=== PATIENT | female | born 1950 | race Caucasian/White ===

== ENCOUNTER → 2018-11-18 14:39 | Outpatient (CLI) | payer OTHER, SELFPAY | PROVIDERS: PCP Internal Medicine; Visit Provider Internal Medicine | DX: M85.852 Other specified disorders of bone density and structure, left thigh (principal); Z78.0 Asymptomatic menopausal state; Z82.62 Family history of osteoporosis | CPT/HCPCS: 77080 ==

== ENCOUNTER 2021-08-26 20:12 | Observation (INO) | payer OTHER, SELFPAY ==
[2021-08-26] VITALS (7 sets, daily range): BP systolic 137–158; BP diastolic 63–72; PULSE 77–88; RESP 12–18; TEMP 36.7; O2SAT 95–100; BMI 18.1; BMI 18.5
--- NOTE | 2021-08-26 20:31 | PC.NURSE ---
Patient reports increase emotional stress with 101 yr old mother not doing well. Patient had one episode of vomiting. Has had about 5 episodes of bright red blood in stool. Shakey, and nauseated.
[2021-08-26 20:36] LABS: Add Manual Diff / Slide Review NO; Basophils Absolute Auto 0 /uL (0-100); Basophils Percent Auto 0.4 % (0-2); Eosinophils Absolute Auto 0 /uL (0-450); Eosinophils Percent Auto 0.2 % (2-4); Hematocrit 39.2 % (36-46); Hemoglobin 13.3 g/dL (12.0-16.0); Lymphocytes Absolute Auto 900 /uL (1100-4500); Lymphocytes Percent Auto 13.4 % (25-40); Mean Corpuscular HGB Conc 33.9 % (30-36); Mean Corpuscular Hemoglobin 33.6 PG (26-34); Mean Corpuscular Volume 99.3 fL (80-100); Monocytes Absolute Auto 500 /uL (0-900); Monocytes Percent Auto 6.9 % (3-14); Neutrophils Absolute Auto 5400 /uL (1500-7000); Neutrophils Percent Auto 79.1 % (50-75); Platelet Count 195 X10^3/uL (150-400); Red Blood Cell Count 3.95 X10^6/uL (4.0-5.2); Red Cell Distribution Width 13.1 % (11.6-14.8); White Blood Cell Count 6.8 X10^3/uL (4.5-11.0)
--- NOTE | 2021-08-26 20:40 | ED_ITS ---
HPI - GI Bleed General Chief complaint: GI Bleed Stated complaint: SICK TO MY STOMACH RECTAL BLEEDING Time Seen by Provider: 08/26/21 20:28 Source: patient Mode of arrival: Wheelchair Limitations: no limitations History of Present Illness HPI Narrative: The patient is a 71-year-old female with no past medical history presenting today with 3 episodes of bright red blood per rectum. He has never had any GI bleeding in the past she is not on any antiplatelet or anticoagulation medication. She has been under lot of stress lately her [id number] mother is actively dying. She has been staying with her. This mor gabbie she had abdominal cramps she threw up once which was nonbloody. She feels dizzy and lightheaded she stands up she overall does not feel well. She previously had a colonoscopy when she was 62 years Related Data Home Medications Medication Instructions Recorded Confirmed alprazolam 0.5 mg tablet 0.5 mg PO PRN PRN 08/27/21 08/27/21 Allergies Allergy/AdvReac Type Severity Reaction Status Date / Time No Known Drug Allergies Allergy Verified 05/25/19 13:48 Review of Systems Review of Systems Narrative: GENERAL: Denies chills, fatigue, malaise, fever, sweats, travel HEENT: Denies sinus pain, ear pain, sore throat, difficulty swallowing, neck pain RESPIRATORY: Denies dyspnea, cough, wheezing, hemoptysis, sputum. CARDIOVASCULAR: Denies chest pain, palpitations, orthopnea, edema GASTROINTESTINAL: see HPI : Denies dysuria, frequency, incontinence, hematuria, urinary retention, flank pain. MUSCULOSKELETAL: Denies weakness, joint pain, or bony pain SKIN: No rash, no erythema, no pruritus NEUROLOGIC:+ dizziness Denies weakness, headache, numbness, change in speech, confusion PSYCHIATRIC: No concerning psychosocial issues. 12 point review of systems is negative except for those stated above and HPI Patient History Medical History (Updated 08/27/21 @ 00:22 by LINCOLN Connell) Healthy adult Surgical History (Updated 08/27/21 @ 00:40 by LINCOLN Connell) No history of previous surgery Family History (Updated 08/27/21 @ 00:41 by LINCOLN Connell) Mother Unknown family medical history Frequent falls Old age Father FH: lung cancer Social History household members: spouse Smoking Status: Never smoker alcohol intake: current Smoking Status: Never smoker Substance Use Type: does not use Exam Initial Vital Signs Initial Vital Signs: Vital Signs Temperature 98.1 F 08/26/21 20:19 Pulse Rate 82 08/26/21 20:19 Respiratory Rate 18 08/26/21 20:19 Blood Pressure 158/72 H 08/26/21 20:19 Pulse Oximetry 99 08/26/21 20:19 GENERAL: Alert 71-year-old female appears in mild distress HEENT: Head atraumatic,EOMI, pupils reactive, face symmetric, moist mucous membranes CARDIOVASCULAR: Regular rate and rhythm without murmurs, rubs or gallops. RESPIRATORY: Breath sounds equal bilaterally, no wheezes rales or rhonchi. ABDOMEN: Soft, nontender. Normoactive bowel sounds all 4 quadrants. No guarding or rebound. RECTAL: She does have blood on the pad she is wearing but is guaiac negative no hemorrhoids : No CVA tenderness EXTREMITIES: Normal range of motion, no clubbing or edema. Neurovascularly intact NEUROLOGICAL: Alert and oriented x4.Normal gait and speech. Obvious minor tremor SKIN: Warm, dry, no laceration, no petechiae, no rashes or lesions. Course Orders Ordered: ED Orders 08/26/21 20:22 Complete Blood Count AUTO DIFF Stat Comprehensive Metabolic Panel Stat Lactate (Lactic Acid) Stat Procalcitonin Stat Troponin & CK Cardiac Panel Stat 08/26/21 20:24 EKG-12 Lead Stat 08/26/21 20:50 CT abdomen pelvis w con Stat 08/26/21 21:40 COVID19 - ADMIT ([employer] swab/PCR) Stat Acetaminophen (Acetaminophen 325 Mg Tablet) 650 mg PO Q6HR PRN PRN Reason: Fever/Mild Pain (1-3) Last Admin: 08/27/21 00:19 Dose: 650 mg Documented by: MASSIMORBFlaquita Sodium Chloride (Normal Saline 0.9%) 1,000 mls @ 100 mls/hr IV CONT LORE Last Admin: 08/26/21 23:28 Dose: 100 mls/hr Documented by: DANIELLE Morphine Sulfate (Morphine 2 Mg/Ml Inj) 2 mg IV Q3H PRN PRN Reason: Pain, Moderate (4-6) Naloxone HCl (Naloxone 0.4 Mg/Ml Vial) 0.2 mg IV Q2MIN PRN PRN Reason: Opiate Reversal Ondansetron HCl (Ondansetron 4 Mg/2 Ml Inj) 4 mg IV Q6HR PRN PRN Reason: Nausea And Vomiting Pantoprazole Sodium (Pantoprazole 40 Mg Vial) 40 mg IV BID LORE Discontinued Medications Acetaminophen (Acetaminophen 325 Mg Tablet) 650 mg PO NOW ONE Stop: 08/26/21 20:59 Last Admin: 08/26/21 21:12 Dose: 650 mg Documented by: AKIN Sodium Chloride (Normal Saline 0.9%) 1,000 mls @ 1,000 mls/hr IV BOLUS ONE Stop: 08/26/21 22:57 Last Infusion: 08/26/21 23:07 Dose: 0 mls/hr Documented by: Admin: 08/26/21 22:05 Dose: 1,000 mls/hr Documented by: AKIN Morphine Sulfate (Morphine 2 Mg/Ml Inj) 2 mg IV NOW ONE Stop: 08/26/21 22:42 Last Admin: 08/26/21 22:50 Dose: 2 mg Documented by: AKIN Pantoprazole Sodium (Pantoprazole 40 Mg Vial) 40 mg IV NOW ONE Stop: 08/26/21 20:51 Last Admin: 08/26/21 20:55 Dose: 40 mg Documented by: AKIN Vital Signs Vital signs: Vital Signs - 8 hr 08/26/21 20:19 08/26/21 21:00 08/26/21 21:11 Temperature 98.1 F Pulse Rate 82 79 88 Respiratory Rate 18 18 16 Blood Pressure 158/72 H 137/63 155/69 H Pulse Oximetry 99 98 99 08/26/21 21:30 08/26/21 22:00 08/26/21 22:30 Temperature Pulse Rate 80 85 77 Respiratory Rate 16 12 12 Blood Pressure 149/67 H 141/65 H 157/69 H Pulse Oximetry 96 95 100 MDM - GI Bleed Lab Data Result diagrams: 08/26/21 20:22 08/26/21 20:22 Labs: Lab Results 08/26/21 08/26/21 08/26/21 Range/Units 20:22 20:22 20:22 WBC 6.8 (4.5-11.0) X10^3/uL RBC 3.95 L (4.0-5.2) X10^6/uL Hgb 13.3 (12.0-16.0) g/dL Hct 39.2 (36-46) % MCV 99.3 (80-100) fL MCH 33.6 (26-34) PG MCHC 33.9 (30-36) % RDW 13.1 (11.6-14.8) % Plt Count 195 (150-400) X10^3/uL Neut % (Auto) 79.1 H (50-75) % Lymph % (Auto) 13.4 L (25-40) % [place] % (Auto) 6.9 (3-14) % Eos % (Auto) 0.2 L (2-4) % Baso % (Auto) 0.4 (0-2) % Neut # (Auto) 5400 (3843-9259) /uL Lymph # (Auto) 900 L (5498-7952) /uL [place] # (Auto) 500 (0-900) /uL Eos # (Auto) 0 (0-450) /uL Baso # (Auto) 0 (0-100) /uL Sodium 141 (137-145) mmol/L Potassium 3.7 (3.4-5.1) mmol/L Chloride 101 (98-107) mmol/L Carbon Dioxide 22 (22-32) mmol/L BUN 5 L (7-17) mg/dL Creatinine 0.56 (0.52-1.04) mg/dL Estimated GFR > 60.0 (>60) mL/min BUN/Creatinine Ratio 8.9 (6-22) Glucose 138 H (80-110) mg/dL Lactate (0.7-2.1) mmol/L Calcium 9.8 (8.4-10.2) mg/dL Total Bilirubin 0.7 (0.2-1.3) mg/dL AST 232 H (14-36) IU/L ALT 196 H (<35) IU/L Alkaline Phosphatase 57 (38-126) U/L Total Creatine Kinase 60 (30-135) U/L CK-MB (CK-2) TNP CK-MB (CK-2) Rel Index TNP Troponin I < 0.012 (0.01-0.034) ng/mL Total Protein 7.9 (6.3-8.2) g/dL Albumin 4.9 (3.5-5.0) g/dL Globulin 3.0 (1.7-4.1) g/dL Albumin/Globulin Ratio 1.6 (1.0-2.8) Procalcitonin (<0.5) ng/mL SARS-CoV-2 (PCR) (Negative) Blood Type Antibody Screen 08/26/21 08/26/21 08/26/21 Range/Units 20:22 20:22 20:22 WBC (4.5-11.0) X10^3/uL RBC (4.0-5.2) X10^6/uL Hgb (12.0-16.0) g/dL Hct (36-46) % MCV (80-100) fL MCH (26-34) PG MCHC (30-36) % RDW (11.6-14.8) % Plt Count (150-400) X10^3/uL Neut % (Auto) (50-75) % Lymph % (Auto) (25-40) % [place] % (Auto) (3-14) % Eos % (Auto) (2-4) % Baso % (Auto) (0-2) % Neut # (Auto) (9239-1916) /uL Lymph # (Auto) (1291-3152) /uL [place] # (Auto) (0-900) /uL Eos # (Auto) (0-450) /uL Baso # (Auto) (0-100) /uL Sodium (137-145) mmol/L Potassium (3.4-5.1) mmol/L Chloride (98-107) mmol/L Carbon Dioxide (22-32) mmol/L BUN (7-17) mg/dL Creatinine (0.52-1.04) mg/dL Estimated GFR (>60) mL/min BUN/Creatinine Ratio (6-22) Glucose (80-110) mg/dL Lactate 3.5 H (0.7-2.1) mmol/L Calcium (8.4-10.2) mg/dL Total Bilirubin (0.2-1.3) mg/dL AST (14-36) IU/L ALT (<35) IU/L Alkaline Phosphatase (38-126) U/L Total Creatine Kinase (30-135) U/L CK-MB (CK-2) CK-MB (CK-2) Rel Index Troponin I (0.01-0.034) ng/mL Total Protein (6.3-8.2) g/dL Albumin (3.5-5.0) g/dL Globulin (1.7-4.1) g/dL Albumin/Globulin Ratio (1.0-2.8) Procalcitonin 0.11 (<0.5) ng/mL SARS-CoV-2 (PCR) (Negative) Blood Type A Positive Antibody Screen Negative 08/26/21 Range/Units 21:40 WBC (4.5-11.0) X10^3/uL RBC (4.0-5.2) X10^6/uL Hgb (12.0-16.0) g/dL Hct (36-46) % MCV (80-100) fL MCH (26-34) PG MCHC (30-36) % RDW (11.6-14.8) % Plt Count (150-400) X10^3/uL Neut % (Auto) (50-75) % Lymph % (Auto) (25-40) % [place] % (Auto) (3-14) % Eos % (Auto) (2-4) % Baso % (Auto) (0-2) % Neut # (Auto) (4689-7967) /uL Lymph # (Auto) (2420-9709) /uL [place] # (Auto) (0-900) /uL Eos # (Auto) (0-450) /uL Baso # (Auto) (0-100) /uL Sodium (137-145) mmol/L Potassium (3.4-5.1) mmol/L Chloride (98-107) mmol/L Carbon Dioxide (22-32) mmol/L BUN (7-17) mg/dL Creatinine (0.52-1.04) mg/dL Estimated GFR (>60) mL/min BUN/Creatinine Ratio (6-22) Glucose (80-110) mg/dL Lactate (0.7-2.1) mmol/L Calcium (8.4-10.2) mg/dL Total Bilirubin (0.2-1.3) mg/dL AST (14-36) IU/L ALT (<35) IU/L Alkaline Phosphatase (38-126) U/L Total Creatine Kinase (30-135) U/L CK-MB (CK-2) CK-MB (CK-2) Rel Index Troponin I (0.01-0.034) ng/mL Total Protein (6.3-8.2) g/dL Albumin (3.5-5.0) g/dL Globulin (1.7-4.1) g/dL Albumin/Globulin Ratio (1.0-2.8) Procalcitonin (<0.5) ng/mL SARS-CoV-2 (PCR) Negative (Negative) Blood Type Antibody Screen Point of Care Testing Stool Occult Blood Negative Imaging Data CT scan - abdomen/pelvis: Radiologist's Impression: PROCEDURE:? CT ABDOMEN PELVIS W CON ? INDICATIONS:? abdominal pain ? TECHNIQUE:? After the administration of intravenous contrast, axial sections acquired from the lung bases to the pubic symphysis.? Coronal and sagittal reformats were performed.? For radiation dose reduction, the following was used:? automated exposure control, adjustment of mA and/or kV according to patient size.? ? COMPARISON:? None. ? FINDINGS:? Image quality:? Excellent.? ? Lung bases:? Unremarkable.? Moderate size hiatal hernia. Heart:? No significant findings. ? ABDOMEN: Liver:? Significant parenchymal hypodensity suggesting steatosis. Gallbladder:? There are few small dependently layering stones near the fundus.? No wall thickening or pericholecystic inflammation. Biliary ducts:? Nondilated. Pancreas:? Normal Spleen:? Normal size. Adrenal Glands:? No nodules. Kidneys and Ureters:? Normal enhancement.? No hydronephrosis or nephrolithiasis.? Normal ureter caliber. ? Stomach and Bowel:? Most of the colon is in significant spasm.? There is wall thickening, wall edema, and mucosal hyperemia involving most of the colon.? There are pericolonic hyperemic changes and trace fat stranding.? Stomach and small bowel are within normal limits. Peritoneum:? No abnormal intraperitoneal fluid.? No free air.? ? Ventral Wall: ? No hernias.? Abdominal Nodes:? Occasional borderline retroperitoneal lymph nodes.? No bulky adenopathy. Vessels:? Aorta and inferior vena cava are normal in size.? ? PELVIS: Pelvic Organs:? Uterus and ovaries are normal. Bladder:? Decompressed. Pelvic Nodes: No enlarged lymph nodes.? Miscellaneous: No hernias are seen. ? ? ? Bones:? Unremarkable.? IMPRESSION:? 1. Findings suggestive of diffuse colitis, infectious or inflammatory.? Given wall thickening, C difficile should be considered.? Correlate clinically. 2. Significant hepatic steatosis. 3. Moderate size hiatal hernia. 4. Cholelithiasis.? ? ? Dictated by: Daiana Phillips M.D. on 08/26/2021 at 21:31 ? ? ECG Data Interpretation: Sinus rhythm rate 77 CO interval 190 QRS 70 QTC 502 no MDM Narrative Medical decision making narrative: Patient is having some symptoms of a possible gastroenteritis been nauseated off and on 1 episode of vomiting intense abdominal cramping and 3 episodes of bright red blood. She does not have leukocytosis in fact her hemoglobin hematocrit are stable. However she does have significantly elevated lactate at 3.5. Her guaiac is negative. CT is concerning for possible colitis. This time I doubt C diff as it suggested seeing as though she has bright red blood. She overall continues to just not feel great despite IV fluids is feeling a bit better. I think it appropriate for her to be monitored. She has not had any further episode of GI bleeding in the emergency department 1040 Dr. Diaz surgery updated patient's symptoms and test results and happily will consult 1043pm Michaelle 1 AR and P update patient's symptoms test results surgery recommendations will accept for observation Discharge Plan Departure Patient Disposition: Admitted as Observation Clinical Impression: Acute GI bleeding Admit Date/Time: 08/26/21 22:47 Admit Provider: Chelsea Gandhi
--- NOTE | 2021-08-26 20:50 | DI.CT.S_ITS ---
PROCEDURE: CT ABDOMEN PELVIS W CON INDICATIONS: abdominal pain TECHNIQUE: After the administration of intravenous contrast, axial sections acquired from the lung bases to the pubic symphysis. Coronal and sagittal reformats were performed. For radiation dose reduction, the following was used: automated exposure control, adjustment of mA and/or kV according to patient size. COMPARISON: None. FINDINGS: Image quality: Excellent. Lung bases: Unremarkable. Moderate size hiatal hernia. Heart: No significant findings. ABDOMEN: Liver: Significant parenchymal hypodensity suggesting steatosis. Gallbladder: There are few small dependently layering stones near the fundus. No wall thickening or pericholecystic inflammation. Biliary ducts: Nondilated. Pancreas: Normal Spleen: Normal size. Adrenal Glands: No nodules. Kidneys and Ureters: Normal enhancement. No hydronephrosis or nephrolithiasis. Normal ureter caliber. Stomach and Bowel: Most of the colon is in significant spasm. There is wall thickening, wall edema, and mucosal hyperemia involving most of the colon. There are pericolonic hyperemic changes and trace fat stranding. Stomach and small bowel are within normal limits. Peritoneum: No abnormal intraperitoneal fluid. No free air. Ventral Wall: No hernias. Abdominal Nodes: Occasional borderline retroperitoneal lymph nodes. No bulky adenopathy. Vessels: Aorta and inferior vena cava are normal in size. PELVIS: Pelvic Organs: Uterus and ovaries are normal. Bladder: Decompressed. Pelvic Nodes: No enlarged lymph nodes. Miscellaneous: No hernias are seen. Bones: Unremarkable. IMPRESSION: 1. Findings suggestive of diffuse colitis, infectious or inflammatory. Given wall thickening, C difficile should be considered. Correlate clinically. 2. Significant hepatic steatosis. 3. Moderate size hiatal hernia. 4. Cholelithiasis. Dictated by: Daiana Phillips M.D. on 08/26/2021 at 21:31 Approved by: Daiana Phillips M.D. on 08/26/2021 at 21:38
[2021-08-26 20:52] LABS: Alanine Aminotransferase 196 IU/L (<35); Albumin 4.9 g/dL (3.5-5.0); Albumin Globulin Ratio 1.6 (1.0-2.8); Alkaline Phosphatase 57 U/L (38-126); Aspartate Aminotransferase 232 IU/L (14-36); BUN Creatinine Ratio 8.9 (6-22); Bilirubin Total 0.7 mg/dL (0.2-1.3); Blood Urea Nitrogen 5 mg/dL (7-17); Calcium 9.8 mg/dL (8.4-10.2); Carbon Dioxide 22 mmol/L (22-32); Chloride 101 mmol/L (98-107); Creatine Kinase 60 U/L (30-135); Estimated Glomerular Filt Rate > 60.0 mL/min (>60); Glucose 138 mg/dL (80-110); HEMOLYSIS < 15 (0-50); Potassium 3.7 mmol/L (3.4-5.1); Sodium 141 mmol/L (137-145); Total Protein 7.9 g/dL (6.3-8.2)
[2021-08-26 20:53] LABS: Lactate (Lactic Acid) 3.5 mmol/L (0.7-2.1)
[2021-08-26] MEDS: PANTOPRAZOLE 40 MG VIAL IV (20:55)
[2021-08-26 21:04] LABS: Troponin I < 0.012 ng/mL (0.01-0.034)
[2021-08-26] MEDS: ACETAMINOPHEN 325 MG TABLET 650 MG PO (21:12)
[2021-08-26] MEDS: SODIUM CHLORIDE 0.9% 1,000 ML 1000 ML IV (22:05)
[2021-08-26 22:29] LABS: Procalcitonin 0.11 ng/mL (<0.5)
[2021-08-26 22:30] LABS: Reflexed Lactate in 2 Hours Y
[2021-08-26 22:39] LABS: COVID19 - ADMIT (NP swab/PCR) Negative (Negative)
[2021-08-26] MEDS: MORPHINE 2 MG/ML INJ IV (22:50)
[2021-08-26 23:09] LABS: Lactate 2HR (Lactic Acid Rflx) 1.5 mmol/L (0.7-2.1)
[2021-08-26] MEDS: SODIUM CHLORIDE 0.9% 1,000 ML 100 ML IV (23:28)
[2021-08-27] VITALS (8 sets, daily range): BP systolic 108–147; BP diastolic 45–61; PULSE 77–90; RESP 16–22; TEMP 36.1–37.9; O2SAT 97–100; BMI 18.5
[2021-08-27] MEDS: ACETAMINOPHEN 325 MG TABLET 650 MG PO ×2 (00:19→20:36)
--- NOTE | 2021-08-27 00:21 | P.HP_ITS ---
History of Present Illness History of Present Illness Chief complaint: SICK TO MY STOMACH RECTAL BLEEDING Narrative: Chelsea Betancourt is a 71 y.o. female with no significant health diagnoses was visiting her mother at her fpc when she was starting to feel off. She assessed by the nurse at her mother's facility and she states a staff member either brought her to the ED or gave her a ride to the ED. She states she has been under a lot of stress as she states her 101 y.o. mother is terminal. She is having some difficulty remembering details and feels bad about that. States has not been eating much but had 3 bowel movements that appeared to be only blood. Last colonoscopy 9 years ago. Denies any recent illnesses or hospitalizations. Denies shortness of breath, chest pain, she is nauseous w/no vomiting, states her abdomen is not painful but does not feel right and is bloated, denies a history of DVT's or calf pain or numbing or tingling of her upper or lower extremities. CT of the abdomen indicated: Findings suggestive of diffuse colitis, infectious or inflammatory.? Given wall thickening, C difficile should be considered.? Correlate clinically. Hepatic stateosis was also seen on CT. She had an elevated lactate of 3.4 and after given a fluid bolus lactate came down to 1.2. Patient was afebrile in presentation to the emergency department when I saw her her temperature was 100.3?. Blood pressure 143/69 heart rate 78 respiratory rate 12 oxygen saturation of 98% on room air she weighs 52 kg with a BMI of 18.5. CBC is unremarkable and she has normal hemoglobin and hematocrit, glucose 138, AST 232, ALT 196, procalcitonin within normal limits, COVID-19 PCR was negative, blood type is A positive. Patient History Medical History (Updated 08/27/21 @ 00:22 by LINCOLN Connell) Healthy adult Surgical History (Updated 08/27/21 @ 00:40 by LINCOLN Connell) No history of previous surgery Family & Social History Family History (Updated 08/27/21 @ 00:41 by LINCOLN Connell) Mother Unknown family medical history Frequent falls Old age Father FH: lung cancer Social History: household members spouse Prior Living Arrangements House Safety & Behavioral: Feels Safe in Current Yes Environment Been Physically Hurt or No Threatened By a Person Suicidal Ideation Description None Suicide Plan Description No Plan Tobacco & Substance use: Smoking Status Never smoker alcohol intake current alcohol intake frequency 0-2 drinks per day Substance Use Type does not use Comment: 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 [employer] Meds Home Medications and Allergies Home Medications Medication Instructions Recorded Confirmed Type azithromycin 250 mg tablet See Rx Instructions PO .COMPLEX #6 05/25/19 Rx tab Allergies Allergy/AdvReac Type Severity Reaction Status Date / Time No Known Drug Allergies Allergy Verified 05/25/19 13:48 Review of Systems Review of Systems ROS: Yes All systems reviewed with the patient and are negative except as otherwise documented Exam Vital Signs (past 8 hours): - 08/26/21 20:19 08/26/21 21:00 08/26/21 21:11 Temperature 98.1 F Pulse Rate 82 79 88 Respiratory Rate 18 18 16 Blood Pressure 158/72 H 137/63 155/69 H Pulse Oximetry 99 98 99 08/26/21 21:30 08/26/21 22:00 08/26/21 22:30 Temperature Pulse Rate 80 85 77 Respiratory Rate 16 12 12 Blood Pressure 149/67 H 141/65 H 157/69 H Pulse Oximetry 96 95 100 08/26/21 23:10 08/27/21 00:19 Temperature 100.3 F H Pulse Rate 78 Respiratory Rate 12 Blood Pressure 143/69 H Pulse Oximetry 98 Oxygen Delivery Method Room Air Narrative Exam Narrative: Gen: Alert, oriented, well-developed 71 y.o. female, mildly anxious HEENT: normocephalic, atraumatic, conjunctiva clear, sclera non-icteric, oral mucosa pink and moist Neck: supple, full ROM, no JVD, trachea is midline Resp: Lungs CTA, non-labored breathing CV: RRR, no murmur or rubs Abd: soft, diffusely mild tender all quadrants, hyperactive BTs Skin: no lesions or rashes, dry and intact Neuro: Alert and oriented X 4 w/no focal deficits. Speech clear and coherent. Extremities: moves all 4 extremities, is ambulatory, negative Damir?s sign Psyche: normal mood and affect. Objective Labs Result Diagrams: 08/26/21 20:22 08/26/21 20:22 Labs: Laboratory Results - last 24 hr 08/26/21 08/26/21 08/26/21 20:22 20:22 20:22 WBC 6.8 RBC 3.95 L Hgb 13.3 Hct 39.2 MCV 99.3 MCH 33.6 MCHC 33.9 RDW 13.1 Plt Count 195 Neut % (Auto) 79.1 H Lymph % (Auto) 13.4 L [place] % (Auto) 6.9 Eos % (Auto) 0.2 L Baso % (Auto) 0.4 Neut # (Auto) 5400 Lymph # (Auto) 900 L [place] # (Auto) 500 Eos # (Auto) 0 Baso # (Auto) 0 Sodium 141 Potassium 3.7 Chloride 101 Carbon Dioxide 22 BUN 5 L Creatinine 0.56 Estimated GFR > 60.0 BUN/Creatinine Ratio 8.9 Glucose 138 H Lactate Calcium 9.8 Total Bilirubin 0.7 AST 232 H ALT 196 H Alkaline Phosphatase 57 Total Creatine Kinase 60 CK-MB (CK-2) TNP CK-MB (CK-2) Rel Index TNP Troponin I < 0.012 Total Protein 7.9 Albumin 4.9 Globulin 3.0 Albumin/Globulin Ratio 1.6 Procalcitonin SARS-CoV-2 (PCR) Blood Type Antibody Screen 08/26/21 08/26/21 08/26/21 20:22 20:22 20:22 WBC RBC Hgb Hct MCV MCH MCHC RDW Plt Count Neut % (Auto) Lymph % (Auto) [place] % (Auto) Eos % (Auto) Baso % (Auto) Neut # (Auto) Lymph # (Auto) [place] # (Auto) Eos # (Auto) Baso # (Auto) Sodium Potassium Chloride Carbon Dioxide BUN Creatinine Estimated GFR BUN/Creatinine Ratio Glucose Lactate 3.5 H Calcium Total Bilirubin AST ALT Alkaline Phosphatase Total Creatine Kinase CK-MB (CK-2) CK-MB (CK-2) Rel Index Troponin I Total Protein Albumin Globulin Albumin/Globulin Ratio Procalcitonin 0.11 SARS-CoV-2 (PCR) Blood Type A Positive Antibody Screen Negative 08/26/21 08/26/21 21:40 22:49 WBC RBC Hgb Hct MCV MCH MCHC RDW Plt Count Neut % (Auto) Lymph % (Auto) [place] % (Auto) Eos % (Auto) Baso % (Auto) Neut # (Auto) Lymph # (Auto) [place] # (Auto) Eos # (Auto) Baso # (Auto) Sodium Potassium Chloride Carbon Dioxide BUN Creatinine Estimated GFR BUN/Creatinine Ratio Glucose Lactate 1.5 Calcium Total Bilirubin AST ALT Alkaline Phosphatase Total Creatine Kinase CK-MB (CK-2) CK-MB (CK-2) Rel Index Troponin I Total Protein Albumin Globulin Albumin/Globulin Ratio Procalcitonin SARS-CoV-2 (PCR) Negative Blood Type Antibody Screen Assessment & Plan Assessment & Plan narrative: Chelsea Betancourt is placed into observation for further evaluation of a suspected infectious or viral colitis 1. Sepsis is secondary to unknown cause, possible infectious or viral colitis, present on admission, appears to have resolved * SOFA score = 0 * Patient is currently febrile but it was resolved with Tylenol * Lactate was 3.4 and came down to 1.2 with a fluid bolus * GI film array and clostridioum difficile PCR pending * IVF NS at 100 ml/hour * IV morphine 2 mg q 3 hours for pain, IV zofran for nausea, po tylenol for fever, mild pain * Diet advance as tolerated VTE Prophylaxis: Wells risk score 0 Bilateral SCDs Patient is placed into observation as her stay is not expected to exceed 2 midnights. FEN: IV fluids: NS at 100 ml/hour, diet: advance as tolerated, labs: CBC, BMP Consultants Dr. Diaz, General Surgery, care and involvement in the patient?s care is appreciated. Dispo: unknown at this time Code status: Full code as discussed with the patient who identifies her Dario as her surrogate and POA. [X] I have utilized all available immediate resources to obtain, update, or review of the patient's current medications COVID-19 COVID-19 status: Negative Result date/Date tested (Pos, Neg/Pending): 08/26/21 Time Spent With Patient Critical Care time: I spent a total of [] minutes of critical care time on this patient's care today; this time is exclusive of procedural time. Scores SOFA PaO2/FIO2: >=400 mmHg Platelets: >= 150 Bilirubin: < 1.2 mg/dL Hypotension: MAP >= 70 mmHg Lisa Coma Scale: 15 Renal: < 1.2 mg/dL SOFA Score: 0 Wells' Criteria for PE Clinical signs and symptoms of DVT: No PE is #1 Dx or equally likely: No Heart rate > 100: No Immobilization at least 3 days or surg in previous 4 weeks: No History of PE or DVT: No Hemoptysis: No Malignancy w/Treatment within 6 months or palliative: No Wells' PE Score total: 0 Quality VTE Deep Vein Thrombosis/Pulmonary Embolism Present on Admission: No MIPS - DC The patient has current or prior documentation of left ventricular ejection fraction (LVEF) less than 40%, or moderate or severely depressed left ventricular systolic function.: No
[2021-08-27] MEDS: ONDANSETRON 4 MG/2 ML INJ IV ×2 (02:11→08:29)
[2021-08-27 02:46] LABS: Appearance Urine UA SL CLOUDY; Bilirubin Urine UA NEGATIVE (NEGATIVE); Color Urine UA RED; Glucose Urine UA NEGATIVE (Negative); Ketones Urine UA 1+ (NEGATIVE); Leukocyte Esterase Urine UA TRACE (NEGATIVE); Nitrite Urine UA NEGATIVE (Negative); Occult Blood Urine UA 3+ (Negative); Protein Urine UA 3+ (Negative); Urobilinogen Urine UA 0.2 E.U./dL (0.2)
[2021-08-27 02:48] LABS: RBC Urine >100/HPF (0-5/HPF); WBC Urine 0-1/HPF (0-5/HPF); pH Urine UA 6.5 (4.5-8.0)
[2021-08-27 02:49] LABS: Bacteria Urine Few (2-10)
[2021-08-27 02:50] LABS: Culture Indicated Urine Specimen Cultured; Squamous Epithelial Cell Urine 0-1 /HPF (0-5/HPF)
--- NOTE | 2021-08-27 03:09 | PC.NURSE ---
Patient was up to the bathroom at 0150 and had a BM and urine output. Samples were collected on both and sent to the lab. Provider LINCOLN Gandhi was notified at 0155 about the patients urine being red and bloody. This RN verified that an order for a UA needed to be placed and Provider LINCOLN Gandhi gave verbal orders to place the order STAT. Patient denied pain at this time but stated that she was nauseous. IV Zofran was given and patient is resting in bed, call light within reach, bed in lowest and locked position, bed alarm on, and no other complaints at this time.
[2021-08-27] MEDS: cefTRIAXone 1,000 MG in SODIUM CHLORIDE 0.9% 100 ML 200 ML IV (03:23)
[2021-08-27 03:32] LABS: Adenovirus F 40/41 Not Detected (Not Detect); Astrovirus Not Detected (Not Detect); Campylobacter Not Detected (Not Detect); Clostridium difficile toxin AB Not Detected (Not Detect); Cryptosporidium Not Detected (Not Detect); Cyclospora cayetanensis Not Detected (Not Detect); Entamoeba histolytica Not Detected (Not Detect); Enteroaggregative E.coli Not Detected (Not Detect); Enteropathogenic E.coli Not Detected (Not Detect); Enterotoxigenic E.coli It/st Not Detected (Not Detect); Giardia lamblia Not Detected (Not Detect); Norovirus GI/GII Not Detected (Not Detect); Plesiomonsa shigelloides Not Detected (Not Detect); Rotavirus A Not Detected (Not Detect); Salmonella Not Detected (Not Detect); Sapovirus Not Detected (Not Detect); Shiga-like toxin-prod E.coli Not Detected (Not Detect); Shigella/Enteroinvasive E.coli Not Detected (Not Detect); Vibrio Not Detected (Not Detect); Vibrio cholerae Not Detected (Not Detect); Yersinia enterocolitica Not Detected (Not Detect)
[2021-08-27 06:01] LABS: Add Manual Diff / Slide Review NO; Basophils Absolute Auto 0 /uL (0-100); Basophils Percent Auto 0.5 % (0-2); Eosinophils Absolute Auto 0 /uL (0-450); Eosinophils Percent Auto 0.4 % (2-4); Hematocrit 31.4 % (36-46); Hemoglobin 10.6 g/dL (12.0-16.0); Lymphocytes Absolute Auto 900 /uL (1100-4500); Lymphocytes Percent Auto 13.7 % (25-40); Mean Corpuscular HGB Conc 33.8 % (30-36); Mean Corpuscular Hemoglobin 33.9 PG (26-34); Mean Corpuscular Volume 100.4 fL (80-100); Monocytes Absolute Auto 700 /uL (0-900); Neutrophils Absolute Auto 4900 /uL (1500-7000); Neutrophils Percent Auto 75.4 % (50-75); Platelet Count 145 X10^3/uL (150-400); Red Blood Cell Count 3.12 X10^6/uL (4.0-5.2); White Blood Cell Count 6.6 X10^3/uL (4.5-11.0)
[2021-08-27 06:07] LABS: Blood Urea Nitrogen 5 mg/dL (7-17); Calcium 8.1 mg/dL (8.4-10.2); Carbon Dioxide 20 mmol/L (22-32); Chloride 103 mmol/L (98-107); Estimated Glomerular Filt Rate > 60.0 mL/min (>60); Glucose 73 mg/dL (80-110); HEMOLYSIS < 15 (0-50); Potassium 3.4 mmol/L (3.4-5.1); Sodium 138 mmol/L (137-145)
[2021-08-27 06:21] LABS: Procalcitonin 0.14 ng/mL (<0.5)
--- NOTE | 2021-08-27 07:16 | DI.US.S_ITS ---
PROCEDURE: US ABDOMEN LIMITED INDICATIONS: elevated transaminase levels TECHNIQUE: Real-time scanning was performed of the abdominal and retroperitoneal organs, with image documentation. Color and pulse Doppler interrogation was also performed of the hepatic and splenic vessels, or of the lesion of interest. COMPARISON: None. FINDINGS: Liver: Hepatic parenchyma shows diffuse increased echogenicity consistent with fatty infiltration. Gallbladder: Several shadowing calculi noted. No gallbladder wall thickening. No pericholecystic fluid or Kim's sign. Common Bile Duct: 5.6 mm. Pancreas: Unremarkable as visualized IMPRESSION: 1. Cholelithiasis without ultrasound evidence of acute cholecystitis 2. Hepatic fatty infiltration. Approved by: Ankit Vogel M.D. on 08/27/2021 at 9:42
[2021-08-27] MEDS: SODIUM CHLORIDE 0.9% 1,000 ML 100 ML IV ×2 (08:29→18:31)
[2021-08-27] MEDS: PANTOPRAZOLE 40 MG VIAL IV ×2 (08:30→20:35)
--- NOTE | 2021-08-27 10:18 | PC.NURSE ---
Addendum entered by Yanci Valencia R.N. 08/27/21 16:12: Patient states that she is feeling better after having some clear liquids. Scopalamine patch applied behind patients left ear to help with nausea. in early to consult with her. She is in good spirits and doing better. Addendum entered by Yanci Valencia R.N. 08/27/21 10:51: 1045- Patient states that her nausea has been controlled with iv zofran. She is resting and also using her quizzies for nausea. Original Note: Patient given zofran for complaints of nausea, also given iv protonix. She has also been up to the bathroom and had 100cc of bloody stool, bright red in color. Her bowel tones are hyperactive, abdomen is non-tender to touch and patient is not distended.
[2021-08-27 12:35] LABS: Hematocrit 32.7 % (36-46)
--- NOTE | 2021-08-27 12:56 | PM.CN ---
History of Present Illness Consult details Date Patient Seen: 08/27/21 Time Patient Seen: 12:56 Chief complaint: SICK TO MY STOMACH RECTAL BLEEDING Reason for consult: colitis with hemorrhage Requesting provider: Jose Miguel Sandoval Narrative: Reports nausea and vomiting past couple weeks. New onset abdominal pain and bright red blood per rectum this last 24hrs. No previous events. Last colonoscopy 9 years ago. Meds Home Medications and Allergies Home Medications Medication Instructions Recorded Confirmed Type alprazolam 0.5 mg tablet 0.5 mg PO PRN PRN 08/27/21 08/27/21 History Allergies Allergy/AdvReac Type Severity Reaction Status Date / Time No Known Drug Allergies Allergy Verified 05/25/19 13:48 Review of Systems Review of Systems Narrative: 3-5 lb weight loss in 6 months ROS: Yes All systems reviewed with the patient and are negative except as otherwise documented Exam Vital Signs (past 8 hours): - 08/27/21 08:10 Temperature 97.0 F L Pulse Rate 89 Respiratory Rate 18 Blood Pressure 108/45 L Pulse Oximetry 98 Oxygen Delivery Method Room Air Oxygen Flow Rate 0 Const General: cooperative, comfortable and well groomed [facility] Head: normocephalic and atraumatic Eyes Conjunctivae: conjunctivae normal Sclera: sclerae normal Neck Neck: trachea midline Chest Chest: normal inspection of the chest Resp Effort & Inspection: normal respiratory effort and able to speak in complete sentences Cardio Rate: regular rate and tachycardic Rhythm: regular rhythm GI Inspection: distended Palpation: firm Rectal Exam: heme positive stool Other: no masses, but I can palpate the inflamed colon with minimal tenderness Skin General: turgor normal and atrophy Neuro General: patient alert and patient oriented x3 Cognition: normal cognition Extrem General: full ROM Psych Appearance: grossly normal Mental Status: mental status grossly normal Attitude: cooperative Thought Content: normal Judgment: judgment good Objective Labs Result Diagrams: 08/27/21 12:25 08/27/21 05:41 Labs: Laboratory Results - last 24 hr 08/26/21 08/26/21 08/26/21 20:22 20:22 20:22 WBC 6.8 RBC 3.95 L Hgb 13.3 Hct 39.2 MCV 99.3 MCH 33.6 MCHC 33.9 RDW 13.1 Plt Count 195 Neut % (Auto) 79.1 H Lymph % (Auto) 13.4 L Lee % (Auto) 6.9 Eos % (Auto) 0.2 L Baso % (Auto) 0.4 Neut # (Auto) 5400 Lymph # (Auto) 900 L [place] # (Auto) 500 Eos # (Auto) 0 Baso # (Auto) 0 Sodium 141 Potassium 3.7 Chloride 101 Carbon Dioxide 22 BUN 5 L Creatinine 0.56 Estimated GFR > 60.0 BUN/Creatinine Ratio 8.9 Glucose 138 H Lactate Calcium 9.8 Total Bilirubin 0.7 AST 232 H ALT 196 H Alkaline Phosphatase 57 Total Creatine Kinase 60 CK-MB (CK-2) TNP CK-MB (CK-2) Rel Index TNP Troponin I < 0.012 Total Protein 7.9 Albumin 4.9 Globulin 3.0 Albumin/Globulin Ratio 1.6 Procalcitonin Urine Color Urine Appearance Urine pH Ur Specific [place] Urine Protein Urine Glucose (UA) Urine Ketones Urine Occult Blood Urine Nitrate Urine Bilirubin Urine Urobilinogen Ur Leukocyte Esterase Urine RBC Urine WBC Ur Squamous Epith Cells Urine Bacteria Ur Culture Indicated? Stl C. cayetanensis PCR Stool Rotavirus (PCR) Stool Adenovirus (PCR) Stool Astrovirus (PCR) Stool Cryptosporidium PCR Stl E.coli Shiga Tox PCR St Sh/Enteroin Ecoli PCR Stool E coli O157 PCR Stl Enterotoxigenic E PCR Stool EPEC (PCR) Stl E. histolytica PCR Stool Giardia Lamblia PCR Stool Sapovirus (PCR) Stl P. shigelloides PCR St Y.enterocolitica PCR Stool Vibrio (PCR) Stl Vibrio cholerae PCR Stl Enteroaggr Ecoli PCR Stl Norovirus GI/GII PCR Campylobacter (PCR) C. difficile Tox (PCR) SARS-CoV-2 (PCR) Salmonella (PCR) Blood Type Antibody Screen 08/26/21 08/26/21 08/26/21 20:22 20:22 20:22 WBC RBC Hgb Hct MCV MCH MCHC RDW Plt Count Neut % (Auto) Lymph % (Auto) [place] % (Auto) Eos % (Auto) Baso % (Auto) Neut # (Auto) Lymph # (Auto) [place] # (Auto) Eos # (Auto) Baso # (Auto) Sodium Potassium Chloride Carbon Dioxide BUN Creatinine Estimated GFR BUN/Creatinine Ratio Glucose Lactate 3.5 H Calcium Total Bilirubin AST ALT Alkaline Phosphatase Total Creatine Kinase CK-MB (CK-2) CK-MB (CK-2) Rel Index Troponin I Total Protein Albumin Globulin Albumin/Globulin Ratio Procalcitonin 0.11 Urine Color Urine Appearance Urine pH Ur Specific [place] Urine Protein Urine Glucose (UA) Urine Ketones Urine Occult Blood Urine Nitrate Urine Bilirubin Urine Urobilinogen Ur Leukocyte Esterase Urine RBC Urine WBC Ur Squamous Epith Cells Urine Bacteria Ur Culture Indicated? Stl C. cayetanensis PCR Stool Rotavirus (PCR) Stool Adenovirus (PCR) Stool Astrovirus (PCR) Stool Cryptosporidium PCR Stl E.coli Shiga Tox PCR St Sh/Enteroin Ecoli PCR Stool E coli O157 PCR Stl Enterotoxigenic E PCR Stool EPEC (PCR) Stl E. histolytica PCR Stool Giardia Lamblia PCR Stool Sapovirus (PCR) Stl P. shigelloides PCR St Y.enterocolitica PCR Stool Vibrio (PCR) Stl Vibrio cholerae PCR Stl Enteroaggr Ecoli PCR Stl Norovirus GI/GII PCR Campylobacter (PCR) C. difficile Tox (PCR) SARS-CoV-2 (PCR) Salmonella (PCR) Blood Type A Positive Antibody Screen Negative 08/26/21 08/26/21 08/27/21 21:40 22:49 01:50 WBC RBC Hgb Hct MCV MCH MCHC RDW Plt Count Neut % (Auto) Lymph % (Auto) [place] % (Auto) Eos % (Auto) Baso % (Auto) Neut # (Auto) Lymph # (Auto) [place] # (Auto) Eos # (Auto) Baso # (Auto) Sodium Potassium Chloride Carbon Dioxide BUN Creatinine Estimated GFR BUN/Creatinine Ratio Glucose Lactate 1.5 Calcium Total Bilirubin AST ALT Alkaline Phosphatase Total Creatine Kinase CK-MB (CK-2) CK-MB (CK-2) Rel Index Troponin I Total Protein Albumin Globulin Albumin/Globulin Ratio Procalcitonin Urine Color Urine Appearance Urine pH Ur Specific [place] Urine Protein Urine Glucose (UA) Urine Ketones Urine Occult Blood Urine Nitrate Urine Bilirubin Urine Urobilinogen Ur Leukocyte Esterase Urine RBC Urine WBC Ur Squamous Epith Cells Urine Bacteria Ur Culture Indicated? Stl C. cayetanensis PCR Stool Rotavirus (PCR) Stool Adenovirus (PCR) Stool Astrovirus (PCR) Stool Cryptosporidium PCR Stl E.coli Shiga Tox PCR St Sh/Enteroin Ecoli PCR Stool E coli O157 PCR Stl Enterotoxigenic E PCR Stool EPEC (PCR) Stl E. histolytica PCR Stool Giardia Lamblia PCR Stool Sapovirus (PCR) Stl P. shigelloides PCR St Y.enterocolitica PCR Stool Vibrio (PCR) Stl Vibrio cholerae PCR Stl Enteroaggr Ecoli PCR Stl Norovirus GI/GII PCR Campylobacter (PCR) C. difficile Tox (PCR) Cancelled SARS-CoV-2 (PCR) Negative Salmonella (PCR) Blood Type Antibody Screen 08/27/21 08/27/21 08/27/21 01:50 01:50 05:41 WBC 6.6 RBC 3.12 L Hgb 10.6 L Hct 31.4 L MCV 100.4 H MCH 33.9 MCHC 33.8 RDW 13.0 Plt Count 145 L Neut % (Auto) 75.4 H Lymph % (Auto) 13.7 L Lee % (Auto) 10.0 Eos % (Auto) 0.4 L Baso % (Auto) 0.5 Neut # (Auto) 4900 Lymph # (Auto) 900 L [place] # (Auto) 700 Eos # (Auto) 0 Baso # (Auto) 0 Sodium Potassium Chloride Carbon Dioxide BUN Creatinine Estimated GFR BUN/Creatinine Ratio Glucose Lactate Calcium Total Bilirubin AST ALT Alkaline Phosphatase Total Creatine Kinase CK-MB (CK-2) CK-MB (CK-2) Rel Index Troponin I Total Protein Albumin Globulin Albumin/Globulin Ratio Procalcitonin Urine Color Red Urine Appearance Sl cloudy Urine pH 6.5 Ur Specific [place] 1.010 Urine Protein 3+ H Urine Glucose (UA) Negative Urine Ketones 1+ H Urine Occult Blood 3+ H Urine Nitrate Negative Urine Bilirubin Negative Urine Urobilinogen 0.2 Ur Leukocyte Esterase Trace H Urine RBC >100/hpf H Urine WBC 0-1/hpf Ur Squamous Epith Cells 0-1 /hpf Urine Bacteria Few (2-10) H Ur Culture Indicated? Specimen cultured Stl C. cayetanensis PCR Not detected Stool Rotavirus (PCR) Not detected Stool Adenovirus (PCR) Not detected Stool Astrovirus (PCR) Not detected Stool Cryptosporidium PCR Not detected Stl E.coli Shiga Tox PCR Not detected St Sh/Enteroin Ecoli PCR Not detected Stool E coli O157 PCR Not Reportable Stl Enterotoxigenic E PCR Not detected Stool EPEC (PCR) Not detected Stl E. histolytica PCR Not detected Stool Giardia Lamblia PCR Not detected Stool Sapovirus (PCR) Not detected Stl P. shigelloides PCR Not detected St Y.enterocolitica PCR Not detected Stool Vibrio (PCR) Not detected Stl Vibrio cholerae PCR Not detected Stl Enteroaggr Ecoli PCR Not detected Stl Norovirus GI/GII PCR Not detected Campylobacter (PCR) Not detected C. difficile Tox (PCR) Not detected SARS-CoV-2 (PCR) Salmonella (PCR) Not detected Blood Type Antibody Screen 08/27/21 08/27/21 08/27/21 05:41 05:41 12:25 WBC RBC Hgb 11.0 L Hct 32.7 L MCV MCH MCHC RDW Plt Count Neut % (Auto) Lymph % (Auto) [place] % (Auto) Eos % (Auto) Baso % (Auto) Neut # (Auto) Lymph # (Auto) Lee # (Auto) Eos # (Auto) Baso # (Auto) Sodium 138 Potassium 3.4 Chloride 103 Carbon Dioxide 20 L BUN 5 L Creatinine 0.50 L Estimated GFR > 60.0 BUN/Creatinine Ratio 10.0 Glucose 73 L Lactate Calcium 8.1 L Total Bilirubin AST ALT Alkaline Phosphatase Total Creatine Kinase CK-MB (CK-2) CK-MB (CK-2) Rel Index Troponin I Total Protein Albumin Globulin Albumin/Globulin Ratio Procalcitonin 0.14 Urine Color Urine Appearance Urine pH Ur Specific [place] Urine Protein Urine Glucose (UA) Urine Ketones Urine Occult Blood Urine Nitrate Urine Bilirubin Urine Urobilinogen Ur Leukocyte Esterase Urine RBC Urine WBC Ur Squamous Epith Cells Urine Bacteria Ur Culture Indicated? Stl C. cayetanensis PCR Stool Rotavirus (PCR) Stool Adenovirus (PCR) Stool Astrovirus (PCR) Stool Cryptosporidium PCR Stl E.coli Shiga Tox PCR St Sh/Enteroin Ecoli PCR Stool E coli O157 PCR Stl Enterotoxigenic E PCR Stool EPEC (PCR) Stl E. histolytica PCR Stool Giardia Lamblia PCR Stool Sapovirus (PCR) Stl P. shigelloides PCR St Y.enterocolitica PCR Stool Vibrio (PCR) Stl Vibrio cholerae PCR Stl Enteroaggr Ecoli PCR Stl Norovirus GI/GII PCR Campylobacter (PCR) C. difficile Tox (PCR) SARS-CoV-2 (PCR) Salmonella (PCR) Blood Type Antibody Screen PFSH Medical History Healthy adult Surgical History No history of previous surgery Family History Mother Unknown family medical history Frequent falls Old age Father FH: lung cancer Social History household members: spouse Tobacco & Substance Use Smoking Status: Never smoker alcohol intake: current Assessment & Plan Assessment & Plan narrative: Hemorrhagic cardenas colitis that is not infectious, distribution is not ischemic. This leaves inflammatory. Presentation is not classic. Plan: Restart clears Nutrition consult for ensure supplements if tolerated monitor Hgb/hct No scope planned at this time CRP, Prealbumin added to morning lab. Hydration with bowel rest. COVID-19 COVID-19 status: Negative Time Spent With Patient Time with patient: 30 to 49 minutes with 50% spent counseling/coordinating care Critical Care time: I spent a total of [] minutes of critical care time on this patient's care today; this time is exclusive of procedural time.
[2021-08-27] MEDS: SCOPOLAMINE 1 PATCH TOP (13:54)
--- NOTE | 2021-08-27 17:04 | CM.DANOTE ---
DCP Assessment: Patient is a 71 yr old female who was admitted for abdominal pain and rectal bleeding. CM met with patient at the bedside and explained role. Patient was alert and oriented x4 at time of CM visit. Patient currently lives in a three story house with her Dario. She is independent with all ADLs and drives at her baseline. Patient has a sister in saturday and her two adult daughters are planning on flying in on Saturday to be with there mother for a few weeks. Patient states she has been up to the bathroom in her room and is independent with ambulation. I: [facility] and Self pay P: DC home with family when medically stable. No identified DC planning need at this time CM will follow to assist with any new DC planning needs that may arise. Mayi Pederson RNnursing service administrator Discharge Planning/Care Management CM Discharge Assessment Start: 08/27/21 17:03 Freq: Status: Active Protocol: Document 08/27/21 17:03 HS (Rec: 08/27/21 17:04 HS [id number]) Discharge Planning Assessment Assigned [employer] Attendant Mayi Pederson RNnursing service administrator DPOA/Assigned Designee Name Dario Betancourt ( ) Contact Information [phone] Advance Directives? No History Provided By Patient Prior Living Arrangements House Household Members spouse Type of transporation used prior to Drives own vehicle admit Independent with ADL's Yes Is patient alert and oriented? Yes Caregiver for Another No Barriers to Discharge No Discharge Plan Home Referrals Initiated None needed Whiteboard Updated in Patient Room with No name and ext. # of [employer] Attendant Review Status In Process Next Review Type Continued Stay Review
[2021-08-28] VITALS (8 sets, daily range): BP systolic 112–137; BP diastolic 49–63; PULSE 77–91; RESP 16–18; TEMP 36.6–37.6; O2SAT 95–99
[2021-08-28] MEDS: cefTRIAXone 1,000 MG in SODIUM CHLORIDE 0.9% 100 ML 200 ML IV (02:33)
[2021-08-28] MEDS: SODIUM CHLORIDE 0.9% 1,000 ML 100 ML IV (04:23)
[2021-08-28 05:33] LABS: Hepatitis B Core Antibody Negative (Negative)
[2021-08-28 06:18] LABS: Add Manual Diff / Slide Review NO; Basophils Absolute Auto 100 /uL (0-100); Basophils Percent Auto 0.8 % (0-2); Eosinophils Absolute Auto 100 /uL (0-450); Eosinophils Percent Auto 0.7 % (2-4); Hematocrit 30.8 % (36-46); Hemoglobin 10.4 g/dL (12.0-16.0); Lymphocytes Absolute Auto 900 /uL (1100-4500); Lymphocytes Percent Auto 11.1 % (25-40); Mean Corpuscular HGB Conc 33.8 % (30-36); Mean Corpuscular Hemoglobin 34.1 PG (26-34); Mean Corpuscular Volume 100.9 fL (80-100); Monocytes Absolute Auto 700 /uL (0-900); Monocytes Percent Auto 7.8 % (3-14); Neutrophils Absolute Auto 6600 /uL (1500-7000); Neutrophils Percent Auto 79.6 % (50-75); Platelet Count 138 X10^3/uL (150-400); Red Blood Cell Count 3.06 X10^6/uL (4.0-5.2); Red Cell Distribution Width 13.1 % (11.6-14.8); White Blood Cell Count 8.3 X10^3/uL (4.5-11.0)
[2021-08-28 06:32] LABS: Alanine Aminotransferase 80 IU/L (<35); Albumin 3.1 g/dL (3.5-5.0); Albumin Globulin Ratio 1.4 (1.0-2.8); Alkaline Phosphatase 37 U/L (38-126); Aspartate Aminotransferase 59 IU/L (14-36); Bilirubin Total 0.6 mg/dL (0.2-1.3); Bilirubin Unconjugated 0.6 mg/dL (0.0-1.1); Calcium 7.6 mg/dL (8.4-10.2); Carbon Dioxide 23 mmol/L (22-32); Chloride 106 mmol/L (98-107); Estimated Glomerular Filt Rate > 60.0 mL/min (>60); Globulin 2.2 g/dL (1.7-4.1); Glucose 82 mg/dL (80-110); HEMOLYSIS < 15 (0-50); Potassium 3.3 mmol/L (3.4-5.1); Sodium 137 mmol/L (137-145); Total Protein 5.3 g/dL (6.3-8.2)
[2021-08-28 06:35] LABS: BUN Creatinine Ratio 3.9 (6-22); Blood Urea Nitrogen 2 mg/dL (7-17)
[2021-08-28 06:37] LABS: Prealbumin 12.9 mg/dL (17.6-36.0)
--- NOTE | 2021-08-28 08:48 | P.PN_ITS ---
Exam Vital Signs (past 8 hours): - 08/28/21 06:00 08/28/21 07:15 Temperature 99.0 F 98.8 F Pulse Rate 91 H 77 Respiratory Rate 16 18 Blood Pressure 112/59 L 130/49 L Pulse Oximetry 99 98 Oxygen Delivery Method Room Air Oxygen Flow Rate 0 Narrative Exam Narrative: Tolerating diet, hemoglobin stable. Her primary care provider is in [place] and she has had a colonoscopy up there in the past. Objective ECG Impression: No acute distress Labs Result Diagrams: 08/28/21 05:56 08/28/21 05:56 Labs: Laboratory Results - last 24 hr 08/27/21 08/27/21 08/28/21 05:00 12:25 05:56 WBC RBC Hgb 11.0 L Hct 32.7 L MCV MCH MCHC RDW Plt Count Neut % (Auto) Lymph % (Auto) [place] % (Auto) Eos % (Auto) Baso % (Auto) Neut # (Auto) Lymph # (Auto) [place] # (Auto) Eos # (Auto) Baso # (Auto) Sodium Potassium Chloride Carbon Dioxide BUN Creatinine Estimated GFR BUN/Creatinine Ratio Glucose Calcium Total Bilirubin 0.6 Conjugated Bilirubin 0.0 Unconjugated Bilirubin 0.6 AST 59 H ALT 80 H Alkaline Phosphatase 37 L C-Reactive Protein Total Protein 5.3 L Albumin 3.1 L Globulin 2.2 Albumin/Globulin Ratio 1.4 Prealbumin Hep B Core Total Ab Negative 08/28/21 08/28/21 08/28/21 05:56 05:56 05:56 WBC 8.3 RBC 3.06 L Hgb 10.4 L Hct 30.8 L MCV 100.9 H MCH 34.1 H MCHC 33.8 RDW 13.1 Plt Count 138 L Neut % (Auto) 79.6 H Lymph % (Auto) 11.1 L [place] % (Auto) 7.8 Eos % (Auto) 0.7 L Baso % (Auto) 0.8 Neut # (Auto) 6600 Lymph # (Auto) 900 L [place] # (Auto) 700 Eos # (Auto) 100 Baso # (Auto) 100 Sodium 137 Potassium 3.3 L Chloride 106 Carbon Dioxide 23 BUN 2 L Creatinine 0.51 L Estimated GFR > 60.0 BUN/Creatinine Ratio 3.9 L Glucose 82 Calcium 7.6 L Total Bilirubin Conjugated Bilirubin Unconjugated Bilirubin AST ALT Alkaline Phosphatase C-Reactive Protein 6.0 H Total Protein Albumin Globulin Albumin/Globulin Ratio Prealbumin 12.9 L Hep B Core Total Ab PFSH Medical History Healthy adult Surgical History No history of previous surgery Family History Mother Unknown family medical history Frequent falls Old age Father FH: lung cancer Social History household members: spouse Smoking Status: Never smoker alcohol intake: current Assessment & Plan Assessment and plan (1) Acute GI bleeding: Status: Acute Plan: Hemoglobin stable. Ok to discharge and follow up with her primary care prov ider. She will need to see GI for endoscopy at some point. Time Spent With Patient Critical Care time: I spent a total of [] minutes of critical care time on this patient's care today; this time is exclusive of procedural time. Quality VTE Deep Vein Thrombosis/Pulmonary Embolism Present on Admission: No
[2021-08-28] MEDS: PANTOPRAZOLE 40 MG VIAL IV (09:08)
[2021-08-28] MEDS: INFLUENZA HD VACCINE 0.7 ML SYRINGE IM (09:11)
[2021-08-28] MEDS: POTASSIUM CHLORIDE 20 MEQ TAB 40 MEQ PO ×2 (11:09→15:41)
--- NOTE | 2021-08-28 15:53 | DIET.PN1 ---
Dietary Progress Note Assessment: 71y F admitted for rectal bleeding and inflammatory colitis referred to nutrition for reccs on high PRO clear liquid supplements. Sending up trial of ONS Ensure Clear and ONS Nhan to see if pt tolerates either. Ht: 167.64 cm Wt: 53.6 kg BMI: 18.5 UBW: Last BM: 08/27/21 (08/27/21 18:15) MNA: 8 Sundar Score: 22 Diet: 08/27/21 Lunch Clear Liquid Diet Diet Modifications: ONS Nhan bid and Ensure clear tid Nutrition Percent Meal Consumed 75% 08/28/21 14:00 Percent Meal Consumed 50% 08/28/21 09:54 Percent Meal Consumed 100% 08/27/21 18:15 Percent Meal Consumed 0% 08/27/21 09:11 Labs: RBC 3.06 X10^6/uL (4.0-5.2) L 08/28/21 05:56 Hgb 10.4 g/dL (12.0-16.0) L 08/28/21 05:56 Hct 30.8 % (36-46) L 08/28/21 05:56 Creatinine 0.51 mg/dL (0.52-1.04) L 08/28/21 05:56 Lactate 1.5 mmol/L (0.7-2.1) 08/26/21 22:49 Monitoring/Evaluations: ONS tolerance Electronically Signed by: Tracy Wright 08/28/21 15:53 Clinical Dietitian [address] [address]
--- NOTE | 2021-08-28 16:01 | PC.NURSE ---
Pt is A&Ox3, VSS, afebrile on RA. LS CTA. Abdomen is Soft nontender, +BS x4, no bloody stool this a.m. Pt is tolerating clear liquids well without n/v. K+ replacement administered today. MD Molian at bedside clearing patient from a surgical standpoint for discharge home and follow up with oout patient provider with possible f/up with ENDO/colonoscopy. Pt is cleared medically by MD Navarrete for discharge home this afternoon. She denies pain, n/v, or further stool/bleeding this shift. Pt verbalizes understanding of discharge plan and follow up with primary care for further evaluation out patient. She is escorted by the CHIEF COMPLIANCE OFFICER to private vehicle with her , with all of her belongings. No new prescriptions at this time.
[2021-08-28 17:45] LABS: Hep C Virus Ab w/Reflex Quant NEGATIVE s/c (NEGATIVE); Hepatitis B Surface Antigen NEGATIVE s/c (NEGATIVE)
--- NOTE | 2021-08-28 17:51 | P.PN_ITS ---
Subjective Subjective Interval history: The patient reports 8-10 small, bloody BM's yesterday. She states this is a marked improvement from the >20 episodes that she was originally having. She denies that they're painful at all. She reports having a good appetite, and keeping her breakfast down with no problem. Exam Vital Signs (past 8 hours): - 08/28/21 11:15 08/28/21 15:15 Temperature 99.6 F 99.6 F Pulse Rate 80 80 Respiratory Rate 16 16 Blood Pressure 131/55 L 112/49 L Pulse Oximetry 97 95 Oxygen Delivery Method Room Air Oxygen Flow Rate 0 Const Other: Sitting up in bed having breakfast upon my entering the room, in no apparent acute distress. Eyes Other: No scleral icterus appreciated. Resp Other: Clear to auscultation bilaterally. Cardio Other: Regular rate and rhythm. S1 and S2 heart sounds heard with no extra heart sounds or murmurs appreciated. No peripheral edema noted. GI Other: Soft, non-distended, non-tender to light palpation, but tender to deep palpation diffusely. Bowel sounds present. Extrem Other: Palpable dorsalis pedis pulses bilaterally. Objective Labs Result Diagrams: 08/28/21 05:56 08/28/21 05:56 Labs: Laboratory Results - last 24 hr 08/27/21 08/28/21 08/28/21 05:00 05:56 05:56 WBC 8.3 RBC 3.06 L Hgb 10.4 L Hct 30.8 L MCV 100.9 H MCH 34.1 H MCHC 33.8 RDW 13.1 Plt Count 138 L Neut % (Auto) 79.6 H Lymph % (Auto) 11.1 L [place] % (Auto) 7.8 Eos % (Auto) 0.7 L Baso % (Auto) 0.8 Neut # (Auto) 6600 Lymph # (Auto) 900 L [place] # (Auto) 700 Eos # (Auto) 100 Baso # (Auto) 100 Sodium Potassium Chloride Carbon Dioxide BUN Creatinine Estimated GFR BUN/Creatinine Ratio Glucose Calcium Total Bilirubin 0.6 Conjugated Bilirubin 0.0 Unconjugated Bilirubin 0.6 AST 59 H ALT 80 H Alkaline Phosphatase 37 L C-Reactive Protein Total Protein 5.3 L Albumin 3.1 L Globulin 2.2 Albumin/Globulin Ratio 1.4 Prealbumin Hep Bs Antigen Hep B Core Total Ab Negative Hepatitis C Antibody 08/28/21 08/28/21 08/28/21 05:56 05:56 05:56 WBC RBC Hgb Hct MCV MCH MCHC RDW Plt Count Neut % (Auto) Lymph % (Auto) [place] % (Auto) Eos % (Auto) Baso % (Auto) Neut # (Auto) Lymph # (Auto) [place] # (Auto) Eos # (Auto) Baso # (Auto) Sodium 137 Potassium 3.3 L Chloride 106 Carbon Dioxide 23 BUN 2 L Creatinine 0.51 L Estimated GFR > 60.0 BUN/Creatinine Ratio 3.9 L Glucose 82 Calcium 7.6 L Total Bilirubin Conjugated Bilirubin Unconjugated Bilirubin AST ALT Alkaline Phosphatase C-Reactive Protein 6.0 H Total Protein Albumin Globulin Albumin/Globulin Ratio Prealbumin 12.9 L Hep Bs Antigen Negative Hep B Core Total Ab Hepatitis C Antibody Negative PFSH Medical History Healthy adult Surgical History No history of previous surgery Family History Mother Unknown family medical history Frequent falls Old age Father FH: lung cancer Social History household members: spouse Smoking Status: Never smoker alcohol intake: current Assessment & Plan Assessment & Plan narrative: Assessment: 1. LGIB, likely cardenas-colitis 2. Hx of anxiety 3. Likely diverticulosis Plan: 1. BM frequency has markedly improved, per patient. General surgery believes colonoscopy should be completed as an outpatient, given severity of current colitis. Hemoglobin stable, and hemodynamically stable. Patient reports wanting to follow-up outpatient for GI referral for colonoscopy since she feels much better and wants to recuperate home. 2. Takes alprazolam at home PRN. 3. Patient likely has a degree of diverticulosis based on hx, and discussed with patient as per problem 1. VTE prophylaxis: Lovenox 40 mg daily Disposition: Home Time Spent With Patient Critical Care time: I spent a total of [] minutes of critical care time on this patient's care today; this time is exclusive of procedural time. Quality VTE Deep Vein Thrombosis/Pulmonary Embolism Present on Admission: No
[2021-08-29 10:22] LABS: Hepatitis B Surf Ab Qualitativ Non Reactive (.)
[2021-09-05 10:39] LABS: H. Pylori Antigen Stool Negative (Negative)
== END 2021-08-28 15:53 | disposition home or self-care (01) ==
LOC: ED 22:41 → AC 22:48
PROVIDERS: Internal Medicine; Surgery; Admitting Provider Nurse Practitioner Family; Emergency Provider Emergency Medicine; PCP Internal Medicine; Referring Provider Emergency Medicine; Visit Provider Nurse Practitioner Family
DX: K52.9 Noninfective gastroenteritis and colitis, unspecified (principal); K92.2 Gastrointestinal hemorrhage, unspecified; R11.2 Nausea with vomiting, unspecified; R10.9 Unspecified abdominal pain; K80.20 Calculus of gallbladder without cholecystitis without obstruction; E88.89 Other specified metabolic disorders; K44.9 Diaphragmatic hernia without obstruction or gangrene; Z20.822 Contact with and (suspected) exposure to COVID-19; Z23 Encounter for immunization
CPT/HCPCS: 36415; 74177; 76705; 80048; 80053; 80076; 81001; 82272; 82550; 83605; 84134; 84145; 84484; 85014; 85018; 85025; 86140; 86704; 86706; 86803; 86850; 86900; 86901; 87077; 87086; 87186; 87338; 87340; 87507; 87635; 90471; 90662; 93005; 93010; 94760; 96361; 96365; 96366; 96375; 99218; 99224; 99285; C9803; G0378; C9113; J0696; J2270; J2405; Q9967

== ENCOUNTER → 2025-07-01 09:50 | Outpatient (CLI) | payer MEDICARE, SELFPAY ==
[2021-08-27 06:01] VITALS: BMI 18.5
[2025-07-01 10:35] LABS: Influenza A - CEPHEID Flu A NEGATIVE (NEGATIVE); Influenza B - CEPHEID Flu B NEGATIVE (NEGATIVE)
[2025-07-01 10:36] LABS: COVID-19 CEPHEID 4-PLEX PCR POSITIVE (Negative)
== END ==
PROVIDERS: PCP Internal Medicine; Visit Provider Nurse Practitioner Family
DX: R05.9 Cough, unspecified (principal)
CPT/HCPCS: 87637